=== PATIENT | male | born 1940 | race Caucasian/White ===

== ENCOUNTER 2017-10-12 12:58 | Inpatient (IN) ==
[2017-10-12] MEDS ORDERED: oxyCODONE/ACETAMINOPHEN 5-325 MG TABLET PO PRN (13:20)
[2017-10-12] MEDS ORDERED: CHOLESTYRAMINE 4 GM PACK PO PRN (13:20)
[2017-10-12] MEDS ORDERED: LUBIPROSTONE 8 MCG CAPSULE PO PRN (13:20)
[2017-10-12] MEDS ORDERED: BENZONATATE 100 MG CAPSULE PO PRN (13:20)
[2017-10-12] MEDS ORDERED: MAGNESIUM SULF RIDER 2 GM in PREMIX 1 EACH IV PRN (13:26)
[2017-10-12] MEDS ORDERED: MAGNESIUM SULF RIDER 4 GM in PREMIX 1 EACH IV PRN (13:26)
[2017-10-12] MEDS ORDERED: CLOBETASOL 0.05% CREAM 15 GM TUBE TOP SCH (13:30)
[2017-10-12] MEDS ORDERED: methylPREDNISolone SOD SUC 125 MG/2 ML VIAL IV STA (13:37)
[2017-10-12] MEDS ORDERED: DEXTROSE 50% 25 GM/50 ML VIAL IV PRN (13:47)
[2017-10-12] MEDS ORDERED: GLUCAGON 1 MG VIAL IM PRN (13:47)
[2017-10-12 14:52] LABS: Basophils # 0.1 10*3/uL (0.0-0.2); Basophils % 0.6 % (0.0-0.8); Eosinophils # 0.1 10*3/uL (0.0-0.87); Eosinophils % 1.7 % (0.00-10.9); Hematocrit 35.6 VOL% (42.0-52.0); Hemoglobin 11.9 GM/DL (14.0-18.0); Immature Granulocytes % 2.2 %; Immature Granulocytes Absolute 0.17 #; Lymphocytes # 1.5 10*3/uL (1.4-4.0); Lymphocytes % 19.7 % (21.2-54.2); Mean Corpuscular HGB Conc 33.4 GM/DL (32-36); Mean Corpuscular Hemoglobin 32 PG (27-34); Mean Corpuscular Volume 95.4 FL (87-102); Mean Platelet Volume 11.1 FL (9.6-12.0); Monocytes # 0.8 10*3/uL (0.11-0.8); Monocytes % 10.9 % (1.7-12.7); Neutrophils % 64.9 % (38.7-73.9); Platelet Count 150 T/CUMM (130-400); Red Blood Count 3.73 MC/CUMM (3.8-5.5); White Blood Count 7.7 T/CUMM (4-12)
[2017-10-12 15:13] LABS: Calcium 8.1 MG/DL (8.5-10.1); Osmolality,Calculated 282.7 MOS/KG (273-304); Potassium 4.3 MMOL/L (3.5-5.1)
[2017-10-12] MEDS ORDERED: FUROSEMIDE 40 MG/4 ML VIAL IV SCH (16:00)
[2017-10-12] MEDS: clonazePAM 0.5 MG TABLET PO SCH ×2 (17:16→20:33)
[2017-10-12] MEDS: GABAPENTIN 100 MG CAPSULE PO SCH ×2 (17:17→20:33)
[2017-10-12] MEDS: LEVOFLOXACIN 500 MG TABLET PO SCH (18:23)
[2017-10-12] MEDS: POTASSIUM CHLORIDE 20 MEQ TABLET PO SCH ×2 (18:26→20:33)
[2017-10-12] MEDS ORDERED: SODIUM CHLORIDE 0.9% 250 ML IV ONE (18:27)
[2017-10-12 18:43] LABS: Basophils % 0.6 % (0.0-0.8); Eosinophils # 0.1 10*3/uL (0.0-0.87); Eosinophils % 1.7 % (0.00-10.9); Hematocrit 35.4 VOL% (42.0-52.0); Hemoglobin 11.3 GM/DL (14.0-18.0); Immature Granulocytes % 1.9 %; Immature Granulocytes Absolute 0.14 #; Lymphocytes # 1.5 10*3/uL (1.4-4.0); Lymphocytes % 20.6 % (21.2-54.2); Mean Corpuscular HGB Conc 31.9 GM/DL (32-36); Mean Corpuscular Hemoglobin 31 PG (27-34); Mean Corpuscular Volume 97.8 FL (87-102); Mean Platelet Volume 10.9 FL (9.6-12.0); Monocytes # 0.9 10*3/uL (0.11-0.8); Monocytes % 12.7 % (1.7-12.7); Neutrophils # 4.5 10*3/uL (1.4-7.4); Neutrophils % 62.5 % (38.7-73.9); Platelet Count 142 T/CUMM (130-400); Red Blood Count 3.62 MC/CUMM (3.8-5.5); White Blood Count 7.3 T/CUMM (4-12)
[2017-10-12] MEDS ORDERED: SODIUM CHLORIDE 0.9% 1,000 ML IV SCH (19:00)
[2017-10-12 19:14] LABS: Albumin 2.6 G/DL (3.4-5.0); Bilirubin,Total 0.4 MG/DL (0.2-1.0); Calcium 8.4 MG/DL (8.5-10.1); Magnesium 1.9 MG/DL (1.8-2.4); Osmolality,Calculated 285.5 MOS/KG (273-304); Potassium 4.1 MMOL/L (3.5-5.1); Total Protein 5.4 G/DL (6.4-8.3)
[2017-10-12 19:24] LABS: ABG Base Excess 0.1 MMOL/L (-2.5-2.5); ABG HCO3 24.4 MMOL/L (20-26); ABG Oxygen Saturation 95.8 % (95-100); ABG PCO2 44.1 MM HG (35-48); ABG PH 7.371 (7.35-7.45); ABG TCO2 23.1 MMOL/L (23-27); Allen Test Positive
[2017-10-12 19:28] LABS: Lactic Acid 2.2 MMOL/L (0.4-2.0)
[2017-10-12] MEDS: INSULIN REGULAR 100 UNIT/ML SUBCUT SCH ×2 (19:37→22:08)
[2017-10-12] MEDS: SERTRALINE 50 MG TABLET PO SCH (20:32)
[2017-10-12] MEDS: MONTELUKAST 10 MG TABLET PO SCH (20:33)
[2017-10-12] MEDS: busPIRone 10 MG TABLET PO SCH (20:33)
[2017-10-12] MEDS: ENOXAPARIN 40 MG/0.4 ML SYRINGE SUBCUT SCH (20:39)
[2017-10-12] MEDS: CARVEDILOL 3.125 MG TABLET PO SCH (20:44)
[2017-10-12] MEDS: ALBUTEROL 2.5 MG/3 ML NEB RESP TX SCH (20:50)
[2017-10-12] MEDS: ARFORMOTEROL 15 MCG/2 ML NEB RESP TX SCH (20:50)
[2017-10-12] MEDS ORDERED: POTASSIUM IODIDE ORAL SOLN 1,000 MG/ML BOTTLE PO SCH (21:00)
[2017-10-12] MEDS ORDERED: NON-FORMULARY MEDICATION (Zolpidem Tartrate [Ambien] 10 MG) PO SCH (21:00)
[2017-10-12] MEDS: predniSONE 5 MG TABLET PO SCH (22:08)
[2017-10-13] MEDS: BUDESONIDE/FORMOTEROL 160-4.5 INHALER 6 GM INH SCH ×3 (01:01→21:30)
[2017-10-13 05:05] LABS: Basophils % 0.5 % (0.0-0.8); Eosinophils # 0.2 10*3/uL (0.0-0.87); Eosinophils % 2.3 % (0.00-10.9); Hematocrit 34.3 VOL% (42.0-52.0); Hemoglobin 11.2 GM/DL (14.0-18.0); Immature Granulocytes % 1.8 %; Immature Granulocytes Absolute 0.15 #; Lymphocytes # 1.4 10*3/uL (1.4-4.0); Lymphocytes % 16.4 % (21.2-54.2); Mean Corpuscular HGB Conc 32.7 GM/DL (32-36); Mean Corpuscular Hemoglobin 32 PG (27-34); Mean Corpuscular Volume 97.2 FL (87-102); Monocytes % 11.9 % (1.7-12.7); Neutrophils # 5.6 10*3/uL (1.4-7.4); Neutrophils % 67.1 % (38.7-73.9); Platelet Count 140 T/CUMM (130-400); Red Blood Count 3.53 MC/CUMM (3.8-5.5); Red Cell Distribution Width 14.8 % (9.3-17.3); White Blood Count 8.4 T/CUMM (4-12)
[2017-10-13 05:39] LABS: Calcium 7.8 MG/DL (8.5-10.1); Magnesium 1.9 MG/DL (1.8-2.4); Osmolality,Calculated 281.5 MOS/KG (273-304); Potassium 4.5 MMOL/L (3.5-5.1)
[2017-10-13] MEDS: LEVOTHYROXINE 88 MCG TABLET PO SCH (06:49)
[2017-10-13] MEDS: ALBUTEROL 2.5 MG/3 ML NEB RESP TX SCH ×3 (07:41→21:41)
[2017-10-13] MEDS: ARFORMOTEROL 15 MCG/2 ML NEB RESP TX SCH ×2 (07:41→21:41)
[2017-10-13] MEDS: MULTIVITAMIN (CENTRUM) TABLET PO SCH (08:59)
[2017-10-13] MEDS: clonazePAM 0.5 MG TABLET PO SCH ×3 (09:00→20:24)
[2017-10-13] MEDS ORDERED: MULTIVITAMIN (CENTRUM) TABLET PO SCH (09:00)
[2017-10-13] MEDS ORDERED: prednisoLONE 5 MG TABLET PO SCH (09:00)
[2017-10-13] MEDS: INSULIN REGULAR 100 UNIT/ML SUBCUT SCH ×2 (09:00→17:02)
[2017-10-13] MEDS: oxyCODONE/ACETAMINOPHEN 5-325 MG TABLET PO SCH (09:00)
[2017-10-13] MEDS: LEVOFLOXACIN 500 MG TABLET PO SCH (09:00)
[2017-10-13] MEDS ORDERED: NON-FORMULARY MEDICATION (Omeprazole [Prilosec] 40 MG) PO SCH (09:00)
[2017-10-13] MEDS: DOCUSATE SODIUM 100 MG CAPSULE PO SCH (09:01)
[2017-10-13] MEDS: PANTOPRAZOLE 40 MG TABLET PO SCH (09:01)
[2017-10-13] MEDS: CALCIUM (CITRATE) 200 MG TABLET PO SCH (09:01)
[2017-10-13] MEDS: CHOLECALCIFEROL 5,000 UNIT TABLET PO SCH (09:01)
[2017-10-13] MEDS: GABAPENTIN 100 MG CAPSULE PO SCH ×3 (09:01→20:23)
[2017-10-13] MEDS: CARVEDILOL 3.125 MG TABLET PO SCH ×2 (09:01→20:24)
[2017-10-13] MEDS: busPIRone 10 MG TABLET PO SCH ×2 (09:01→20:24)
[2017-10-13] MEDS: SPIRONOLACTONE 25 MG TABLET PO SCH (09:01)
[2017-10-13] MEDS: POTASSIUM CHLORIDE 20 MEQ TABLET PO SCH ×2 (09:02→20:23)
[2017-10-13] MEDS: OMEGA 3 ACID ETHYL ESTERS 1 GM CAPSULE PO SCH (09:02)
[2017-10-13] MEDS: oxyCODONE/ACETAMINOPHEN 5-325 MG TABLET PO PRN ×2 (15:22→22:34)
[2017-10-13] MEDS: MONTELUKAST 10 MG TABLET PO SCH (20:23)
[2017-10-13] MEDS: SERTRALINE 50 MG TABLET PO SCH (20:24)
[2017-10-13] MEDS: ENOXAPARIN 40 MG/0.4 ML SYRINGE SUBCUT SCH (20:31)
[2017-10-13] MEDS: ZALEPLON 5 MG CAPSULE PO PRN (22:34)
[2017-10-14] MEDS: oxyCODONE/ACETAMINOPHEN 5-325 MG TABLET PO PRN (03:16)
[2017-10-14] MEDS: CYCLOBENZAPRINE 10 MG TABLET PO PRN (03:19)
[2017-10-14] MEDS: LEVOTHYROXINE 88 MCG TABLET PO SCH (06:24)
[2017-10-14] MEDS: ALBUTEROL 2.5 MG/3 ML NEB RESP TX SCH ×3 (07:49→21:11)
[2017-10-14] MEDS: ARFORMOTEROL 15 MCG/2 ML NEB RESP TX SCH ×2 (07:49→21:11)
[2017-10-14] MEDS: ROSUVASTATIN 10 MG TABLET PO SCH (10:16)
[2017-10-14] MEDS: PANTOPRAZOLE 40 MG TABLET PO SCH (10:17)
[2017-10-14] MEDS: oxyCODONE/ACETAMINOPHEN 5-325 MG TABLET PO SCH (10:17)
[2017-10-14] MEDS: SPIRONOLACTONE 25 MG TABLET PO SCH (10:17)
[2017-10-14] MEDS: DOCUSATE SODIUM 100 MG CAPSULE PO SCH (10:17)
[2017-10-14] MEDS: predniSONE 5 MG TABLET PO SCH (10:18)
[2017-10-14] MEDS: MULTIVITAMIN (CENTRUM) TABLET PO SCH (10:18)
[2017-10-14] MEDS: POTASSIUM CHLORIDE 20 MEQ TABLET PO SCH ×2 (10:18→21:44)
[2017-10-14] MEDS: busPIRone 10 MG TABLET PO SCH ×2 (10:18→21:44)
[2017-10-14] MEDS: CARVEDILOL 3.125 MG TABLET PO SCH ×2 (10:18→21:44)
[2017-10-14] MEDS: LEVOFLOXACIN 500 MG TABLET PO SCH (10:18)
[2017-10-14] MEDS: GABAPENTIN 100 MG CAPSULE PO SCH ×3 (10:19→21:44)
[2017-10-14] MEDS: OMEGA 3 ACID ETHYL ESTERS 1 GM CAPSULE PO SCH (10:19)
[2017-10-14] MEDS: clonazePAM 0.5 MG TABLET PO SCH ×3 (10:19→21:43)
[2017-10-14] MEDS: BUDESONIDE/FORMOTEROL 160-4.5 INHALER 6 GM INH SCH ×2 (10:19→21:53)
[2017-10-14] MEDS: CALCIUM (CITRATE) 200 MG TABLET PO SCH (14:18)
[2017-10-14] MEDS: CHOLECALCIFEROL 5,000 UNIT TABLET PO SCH (18:26)
[2017-10-14] MEDS: ZALEPLON 5 MG CAPSULE PO PRN (21:43)
[2017-10-14] MEDS: SERTRALINE 50 MG TABLET PO SCH (21:43)
[2017-10-14] MEDS: MONTELUKAST 10 MG TABLET PO SCH (21:43)
[2017-10-14] MEDS: ENOXAPARIN 40 MG/0.4 ML SYRINGE SUBCUT SCH (21:48)
[2017-10-15] MEDS: CYCLOBENZAPRINE 10 MG TABLET PO PRN (01:14)
[2017-10-15 04:56] LABS: Basophils % 0.5 % (0.0-0.8); Eosinophils # 0.1 10*3/uL (0.0-0.87); Eosinophils % 1.5 % (0.00-10.9); Hematocrit 34.4 VOL% (42.0-52.0); Hemoglobin 10.6 GM/DL (14.0-18.0); Immature Granulocytes % 1.5 %; Immature Granulocytes Absolute 0.09 #; Lymphocytes # 1.1 10*3/uL (1.4-4.0); Lymphocytes % 19.4 % (21.2-54.2); Mean Corpuscular HGB Conc 30.8 GM/DL (32-36); Mean Corpuscular Hemoglobin 31 PG (27-34); Mean Corpuscular Volume 101.2 FL (87-102); Mean Platelet Volume 11.1 FL (9.6-12.0); Monocytes # 0.8 10*3/uL (0.11-0.8); Monocytes % 13.4 % (1.7-12.7); Neutrophils # 3.8 10*3/uL (1.4-7.4); Neutrophils % 63.7 % (38.7-73.9); Platelet Count 154 T/CUMM (130-400); Red Cell Distribution Width 14.6 % (9.3-17.3); White Blood Count 5.9 T/CUMM (4-12)
[2017-10-15 05:27] LABS: Calcium 8.6 MG/DL (8.5-10.1); Osmolality,Calculated 279.7 MOS/KG (273-304); Potassium 5.7 MMOL/L (3.5-5.1)
[2017-10-15] MEDS: LEVOTHYROXINE 88 MCG TABLET PO SCH (06:01)
[2017-10-15] MEDS: ALBUTEROL 2.5 MG/3 ML NEB RESP TX SCH ×3 (07:15→19:45)
[2017-10-15] MEDS: ARFORMOTEROL 15 MCG/2 ML NEB RESP TX SCH ×2 (07:20→19:46)
[2017-10-15] MEDS: GABAPENTIN 100 MG CAPSULE PO SCH ×3 (09:00→21:05)
[2017-10-15] MEDS: CARVEDILOL 3.125 MG TABLET PO SCH (09:11)
[2017-10-15] MEDS: SPIRONOLACTONE 25 MG TABLET PO SCH (09:11)
[2017-10-15] MEDS: clonazePAM 0.5 MG TABLET PO SCH ×3 (09:11→21:06)
[2017-10-15] MEDS: busPIRone 10 MG TABLET PO SCH ×2 (09:11→21:06)
[2017-10-15] MEDS: PANTOPRAZOLE 40 MG TABLET PO SCH (09:12)
[2017-10-15] MEDS: MULTIVITAMIN (CENTRUM) TABLET PO SCH (09:14)
[2017-10-15] MEDS: LEVOFLOXACIN 500 MG TABLET PO SCH (09:14)
[2017-10-15] MEDS: DOCUSATE SODIUM 100 MG CAPSULE PO SCH (09:14)
[2017-10-15] MEDS: CALCIUM (CITRATE) 200 MG TABLET PO SCH (09:14)
[2017-10-15] MEDS: POTASSIUM CHLORIDE 20 MEQ TABLET PO SCH ×2 (09:15→21:06)
[2017-10-15] MEDS: OMEGA 3 ACID ETHYL ESTERS 1 GM CAPSULE PO SCH (09:15)
[2017-10-15] MEDS: BUDESONIDE/FORMOTEROL 160-4.5 INHALER 6 GM INH SCH ×2 (09:15→21:06)
[2017-10-15] MEDS ORDERED: ONDANSETRON 4 MG/2 ML VIAL IV PRN (13:48)
[2017-10-15] MEDS: CHOLECALCIFEROL 5,000 UNIT TABLET PO SCH (14:27)
[2017-10-15] MEDS: ASPIRIN EC 81 MG TABLET PO SCH (14:28)
[2017-10-15] MEDS: ENOXAPARIN 40 MG/0.4 ML SYRINGE SUBCUT SCH (21:05)
[2017-10-15] MEDS: MONTELUKAST 10 MG TABLET PO SCH (21:05)
[2017-10-15] MEDS: SERTRALINE 50 MG TABLET PO SCH (21:06)
[2017-10-15] MEDS: METOPROLOL SUCCINATE XL 25 MG TABLET PO SCH (21:06)
[2017-10-16] MEDS: CYCLOBENZAPRINE 10 MG TABLET PO PRN (01:18)
[2017-10-16 05:02] LABS: Basophils % 0.5 % (0.0-0.8); Eosinophils # 0.2 10*3/uL (0.0-0.87); Hematocrit 35.4 VOL% (42.0-52.0); Hemoglobin 10.8 GM/DL (14.0-18.0); Immature Granulocytes Absolute 0.08 #; Lymphocytes # 1.2 10*3/uL (1.4-4.0); Lymphocytes % 15.5 % (21.2-54.2); Mean Corpuscular HGB Conc 30.5 GM/DL (32-36); Mean Corpuscular Hemoglobin 31 PG (27-34); Mean Corpuscular Volume 102.3 FL (87-102); Mean Platelet Volume 11.3 FL (9.6-12.0); Monocytes # 0.8 10*3/uL (0.11-0.8); Monocytes % 10.2 % (1.7-12.7); Neutrophils # 5.4 10*3/uL (1.4-7.4); Neutrophils % 70.8 % (38.7-73.9); Platelet Count 167 T/CUMM (130-400); Red Blood Count 3.46 MC/CUMM (3.8-5.5); Red Cell Distribution Width 14.6 % (9.3-17.3); White Blood Count 7.7 T/CUMM (4-12)
[2017-10-16 05:37] LABS: Calcium 8.5 MG/DL (8.5-10.1); Magnesium 1.8 MG/DL (1.8-2.4); Osmolality,Calculated 274.8 MOS/KG (273-304); Potassium 5.9 MMOL/L (3.5-5.1)
[2017-10-16] MEDS: LEVOTHYROXINE 88 MCG TABLET PO SCH (06:30)
[2017-10-16] MEDS: ALBUTEROL 2.5 MG/3 ML NEB RESP TX SCH ×3 (07:51→20:26)
[2017-10-16] MEDS: ARFORMOTEROL 15 MCG/2 ML NEB RESP TX SCH ×2 (07:51→20:26)
[2017-10-16] MEDS: clonazePAM 0.5 MG TABLET PO SCH ×3 (08:05→20:26)
[2017-10-16] MEDS: CHOLECALCIFEROL 5,000 UNIT TABLET PO SCH (08:05)
[2017-10-16] MEDS: ROSUVASTATIN 10 MG TABLET PO SCH (08:05)
[2017-10-16] MEDS: ASPIRIN EC 81 MG TABLET PO SCH (08:07)
[2017-10-16] MEDS: CALCIUM (CITRATE) 200 MG TABLET PO SCH (08:07)
[2017-10-16] MEDS: predniSONE 5 MG TABLET PO SCH (08:07)
[2017-10-16] MEDS: LEVOFLOXACIN 500 MG TABLET PO SCH (08:08)
[2017-10-16] MEDS: POTASSIUM CHLORIDE 20 MEQ TABLET PO SCH ×2 (08:08→08:12)
[2017-10-16] MEDS: OMEGA 3 ACID ETHYL ESTERS 1 GM CAPSULE PO SCH (08:08)
[2017-10-16] MEDS: PANTOPRAZOLE 40 MG TABLET PO SCH (08:08)
[2017-10-16] MEDS: GABAPENTIN 100 MG CAPSULE PO SCH ×3 (08:08→20:17)
[2017-10-16] MEDS: MULTIVITAMIN (CENTRUM) TABLET PO SCH (08:08)
[2017-10-16] MEDS: SPIRONOLACTONE 25 MG TABLET PO SCH (08:08)
[2017-10-16] MEDS: DOCUSATE SODIUM 100 MG CAPSULE PO SCH (08:08)
[2017-10-16] MEDS: METOPROLOL SUCCINATE XL 25 MG TABLET PO SCH ×2 (08:08→20:17)
[2017-10-16] MEDS: busPIRone 10 MG TABLET PO SCH ×2 (08:09→20:26)
[2017-10-16] MEDS: BUDESONIDE/FORMOTEROL 160-4.5 INHALER 6 GM INH SCH ×2 (10:21→20:17)
[2017-10-16] MEDS: ENOXAPARIN 40 MG/0.4 ML SYRINGE SUBCUT SCH (20:14)
[2017-10-16] MEDS: MONTELUKAST 10 MG TABLET PO SCH (20:17)
[2017-10-16] MEDS: SERTRALINE 50 MG TABLET PO SCH (20:26)
[2017-10-17] MEDS: CYCLOBENZAPRINE 10 MG TABLET PO PRN (00:21)
[2017-10-17 05:39] LABS: Basophils % 0.5 % (0.0-0.8); Eosinophils # 0.1 10*3/uL (0.0-0.87); Eosinophils % 2.1 % (0.00-10.9); Hematocrit 33.9 VOL% (42.0-52.0); Hemoglobin 10.4 GM/DL (14.0-18.0); Immature Granulocytes % 1.4 %; Immature Granulocytes Absolute 0.08 #; Lymphocytes # 1.3 10*3/uL (1.4-4.0); Lymphocytes % 22.4 % (21.2-54.2); Mean Corpuscular HGB Conc 30.7 GM/DL (32-36); Mean Corpuscular Hemoglobin 31 PG (27-34); Mean Corpuscular Volume 101.8 FL (87-102); Mean Platelet Volume 11.2 FL (9.6-12.0); Monocytes # 0.7 10*3/uL (0.11-0.8); Neutrophils # 3.5 10*3/uL (1.4-7.4); Neutrophils % 61.6 % (38.7-73.9); Platelet Count 163 T/CUMM (130-400); Red Blood Count 3.33 MC/CUMM (3.8-5.5); Red Cell Distribution Width 14.6 % (9.3-17.3); White Blood Count 5.8 T/CUMM (4-12)
[2017-10-17] MEDS: LEVOTHYROXINE 88 MCG TABLET PO SCH (05:56)
[2017-10-17 06:09] LABS: Calcium 8.6 MG/DL (8.5-10.1); Magnesium 1.9 MG/DL (1.8-2.4); Osmolality,Calculated 282.4 MOS/KG (273-304); Potassium 4.9 MMOL/L (3.5-5.1)
[2017-10-17] MEDS: ARFORMOTEROL 15 MCG/2 ML NEB RESP TX SCH (07:48)
[2017-10-17] MEDS: ALBUTEROL 2.5 MG/3 ML NEB RESP TX SCH ×2 (07:48→13:07)
[2017-10-17] MEDS: PANTOPRAZOLE 40 MG TABLET PO SCH (08:16)
[2017-10-17] MEDS: DOCUSATE SODIUM 100 MG CAPSULE PO SCH (08:16)
[2017-10-17] MEDS: METOPROLOL SUCCINATE XL 25 MG TABLET PO SCH (08:16)
[2017-10-17] MEDS: GABAPENTIN 100 MG CAPSULE PO SCH ×2 (08:16→16:21)
[2017-10-17] MEDS: CALCIUM (CITRATE) 200 MG TABLET PO SCH (08:16)
[2017-10-17] MEDS: clonazePAM 0.5 MG TABLET PO SCH ×2 (08:17→16:22)
[2017-10-17] MEDS: SPIRONOLACTONE 25 MG TABLET PO SCH (08:17)
[2017-10-17] MEDS: MULTIVITAMIN (CENTRUM) TABLET PO SCH (08:17)
[2017-10-17] MEDS: ASPIRIN EC 81 MG TABLET PO SCH (08:18)
[2017-10-17] MEDS: OMEGA 3 ACID ETHYL ESTERS 1 GM CAPSULE PO SCH (08:18)
[2017-10-17] MEDS: CHOLECALCIFEROL 5,000 UNIT TABLET PO SCH (08:18)
[2017-10-17] MEDS: LEVOFLOXACIN 500 MG TABLET PO SCH (08:18)
[2017-10-17] MEDS: busPIRone 10 MG TABLET PO SCH (08:18)
[2017-10-17] MEDS: BUDESONIDE/FORMOTEROL 160-4.5 INHALER 6 GM INH SCH (08:19)
[2017-10-17] MEDS ORDERED: predniSONE 5 MG TABLET PO SCH (09:00)
[2017-10-17] MEDS ORDERED: SODIUM CHLORIDE 0.45% 1,000 ML IV SCH (12:00)
[2017-10-17 16:10] VITALS: BP 132/99
[2017-10-17] MEDS ORDERED: CARVEDILOL 3.125 MG TABLET PO SCH (21:00)
== END 2017-10-17 17:33 | disposition home health service (06) | DRG 291 ==
LOC: EDBD → EDUNIT# → N.ED 12:58 → SUATTDRO 13:26 → N.EDINP 13:26 → N.TELEN 16:10 → N.CC 18:40
PROVIDERS: ADMIT Internal Medicine Cardiovascular Disease; ATTEND Internal Medicine Cardiovascular Disease

== ENCOUNTER 2018-01-29 12:24 | Inpatient (IN) ==
[~2018-01-29 12:24] MED LIST: HEPARIN/NACL 0.9% 2 UNITS/ML 0 ML IV ONE; MIDAZOLAM 2 MG/2 ML VIAL ONE; fentaNYL 100 MCG/2 ML VIAL ONE
[2018-01-29] MEDS ORDERED: ENOXAPARIN 100 MG/ML SYRINGE SUBCUT STA (12:50)
[2018-01-29] MEDS ORDERED: ALBUTEROL/IPRATROPIUM 3 ML NEB RESP TX STA (12:50)
[2018-01-29] MEDS ORDERED: ASPIRIN 325 MG TABLET PO STA (12:50)
[2018-01-29 13:53] LABS: Basophils # 0.1 10*3/uL (0.0-0.2); Basophils % 0.3 % (0.0-0.8); Hematocrit 36.6 VOL% (42.0-52.0); Hemoglobin 11.5 GM/DL (14.0-18.0); Immature Granulocytes Absolute 0.15 #; Lymphocytes # 1.4 10*3/uL (1.4-4.0); Lymphocytes % 9.3 % (21.2-54.2); Mean Corpuscular HGB Conc 31.4 GM/DL (32-36); Mean Corpuscular Hemoglobin 28 PG (27-34); Mean Corpuscular Volume 87.8 FL (87-102); Mean Platelet Volume 11.2 FL (9.6-12.0); Monocytes # 2.5 10*3/uL (0.11-0.8); Neutrophils # 11.2 10*3/uL (1.4-7.4); Neutrophils % 73.4 % (38.7-73.9); Platelet Count 139 T/CUMM (130-400); Red Blood Count 4.17 MC/CUMM (3.8-5.5); White Blood Count 15.3 T/CUMM (4-12)
[2018-01-29 14:13] LABS: Albumin 3.3 G/DL (3.4-5.0); Bilirubin,Total 1.2 MG/DL (0.2-1.0); Calcium 8.6 MG/DL (8.5-10.1); Potassium 4.7 MMOL/L (3.5-5.1); Total Protein 6.4 G/DL (6.4-8.3)
[2018-01-29 14:18] LABS: Anisocytosis 1+; Band Neutrophils 23 % (0-10); Lymphocytes 11 % (20-55); Platelet Estimate Adequate; Segmented Neutrophils 53 % (50-85); Total Cells Counted 100
[2018-01-29] MEDS ORDERED: ONDANSETRON 4 MG/2 ML VIAL IV PRN (15:49)
[2018-01-29] MEDS ORDERED: ACETAMINOPHEN 325 MG TABLET PO PRN (15:49)
[2018-01-29] MEDS ORDERED: guaiFENesin/DM ER 600-30 MG TABLET PO PRN (15:49)
[2018-01-29] MEDS ORDERED: MAGNESIUM SULF RIDER 2 GM in PREMIX 1 EACH IV ONE (15:53)
[2018-01-29] MEDS ORDERED: SODIUM CHLORIDE 0.9% 1,000 ML IV SCH (16:00)
[2018-01-29] MEDS ORDERED: SODIUM CHLORIDE 0.9% 250 ML IV ONE (16:01)
[2018-01-29] MEDS ORDERED: CHOLESTYRAMINE 4 GM PACK PO PRN (16:03)
[2018-01-29] MEDS ORDERED: NITROGLYCERIN SL 0.4 MG TABLET SL PRN (16:03)
[2018-01-29] MEDS ORDERED: BUMETANIDE 1 MG TABLET PO PRN (16:03)
[2018-01-29] MEDS ORDERED: SPIRONOLACTONE 25 MG TABLET PO PRN (16:03)
[2018-01-29] MEDS ORDERED: BENZONATATE 100 MG CAPSULE PO PRN (16:03)
[2018-01-29] MEDS ORDERED: POTASSIUM IODIDE ORAL SOLN 1,000 MG/ML BOTTLE PO PRN (16:03)
[2018-01-29] MEDS ORDERED: ALBUTEROL 2.5 MG/3 ML NEB RESP TX PRN (16:03)
[2018-01-29 17:39] LABS: Lactic Acid 2.6 MMOL/L (0.4-2.0)
[2018-01-29] MEDS: LEVOFLOXACIN 750 MG TABLET PO SCH (18:01)
[2018-01-29] MEDS: BUDESONIDE 0.5 MG/2 ML NEB RESP TX SCH (19:24)
[2018-01-29] MEDS: ARFORMOTEROL 15 MCG/2 ML NEB RESP TX SCH (19:24)
[2018-01-29] MEDS: GABAPENTIN 100 MG CAPSULE PO SCH (21:25)
[2018-01-29] MEDS: DOCUSATE SODIUM 100 MG CAPSULE PO SCH (21:25)
[2018-01-29] MEDS: CARVEDILOL 3.125 MG TABLET PO SCH (21:25)
[2018-01-29] MEDS: ISOSORBIDE MONONITRATE 20 MG TABLET PO SCH (21:25)
[2018-01-29] MEDS: ZALEPLON 5 MG CAPSULE PO SCH (21:25)
[2018-01-29] MEDS: MONTELUKAST 10 MG TABLET PO SCH (21:25)
[2018-01-29] MEDS: ALFUZOSIN 10 MG TABLET PO SCH (21:25)
[2018-01-29] MEDS: SERTRALINE 100 MG TABLET PO SCH (21:25)
[2018-01-29] MEDS: OMEGA 3 ACID ETHYL ESTERS 1 GM CAPSULE PO SCH (21:26)
[2018-01-29] MEDS: busPIRone 10 MG TABLET PO SCH (21:30)
[2018-01-29] MEDS: CHOLECALCIFEROL 5,000 UNIT TABLET PO SCH (22:44)
[2018-01-29 23:27] LABS: Lactic Acid 2.4 MMOL/L (0.4-2.0)
[2018-01-30] MEDS: CYCLOBENZAPRINE 10 MG TABLET PO PRN ×2 (01:39→15:35)
[2018-01-30 03:18] LABS: Basophils % 0.2 % (0.0-0.8); Eosinophils % 0.2 % (0.00-10.9); Hematocrit 33.9 VOL% (42.0-52.0); Hemoglobin 10.8 GM/DL (14.0-18.0); Immature Granulocytes % 0.8 %; Immature Granulocytes Absolute 0.11 #; Lymphocytes # 1.4 10*3/uL (1.4-4.0); Lymphocytes % 10.8 % (21.2-54.2); Mean Corpuscular HGB Conc 31.9 GM/DL (32-36); Mean Corpuscular Hemoglobin 28 PG (27-34); Mean Corpuscular Volume 87.6 FL (87-102); Mean Platelet Volume 11.5 FL (9.6-12.0); Monocytes % 14.9 % (1.7-12.7); Neutrophils # 9.6 10*3/uL (1.4-7.4); Neutrophils % 73.1 % (38.7-73.9); Platelet Count 135 T/CUMM (130-400); Red Blood Count 3.87 MC/CUMM (3.8-5.5); Red Cell Distribution Width 15.1 % (9.3-17.3); White Blood Count 13.2 T/CUMM (4-12)
[2018-01-30 03:34] LABS: Calcium 8.4 MG/DL (8.5-10.1)
[2018-01-30] MEDS: methylPREDNISolone SOD SUC 40 MG/1 ML VIAL IV SCH ×3 (04:45→21:50)
[2018-01-30] MEDS: LEVOTHYROXINE 88 MCG TABLET PO SCH (06:11)
[2018-01-30] MEDS: ARFORMOTEROL 15 MCG/2 ML NEB RESP TX SCH (07:19)
[2018-01-30] MEDS: ALBUTEROL/IPRATROPIUM 3 ML NEB RESP TX SCH ×3 (07:20→20:12)
[2018-01-30] MEDS: BUDESONIDE 0.5 MG/2 ML NEB RESP TX SCH ×2 (07:20→20:12)
[2018-01-30] MEDS: ASPIRIN 325 MG TABLET PO SCH (08:25)
[2018-01-30] MEDS: CALCIUM (CITRATE) 200 MG TABLET PO SCH (08:25)
[2018-01-30] MEDS: busPIRone 10 MG TABLET PO SCH ×2 (08:25→21:49)
[2018-01-30] MEDS: GABAPENTIN 100 MG CAPSULE PO SCH ×3 (08:25→21:49)
[2018-01-30] MEDS: LUBIPROSTONE 8 MCG CAPSULE PO SCH (08:25)
[2018-01-30] MEDS: PANTOPRAZOLE 40 MG TABLET PO SCH (08:25)
[2018-01-30] MEDS: ENOXAPARIN 40 MG/0.4 ML SYRINGE SUBCUT SCH (08:25)
[2018-01-30] MEDS: guaiFENesin/DM ER 600-30 MG TABLET PO SCH ×2 (08:25→21:50)
[2018-01-30] MEDS: CARVEDILOL 3.125 MG TABLET PO SCH ×2 (08:25→21:50)
[2018-01-30] MEDS: MULTIVITAMIN (CENTRUM) TABLET PO SCH (08:25)
[2018-01-30] MEDS: ISOSORBIDE MONONITRATE 20 MG TABLET PO SCH ×2 (08:25→21:50)
[2018-01-30] MEDS ORDERED: PANTOPRAZOLE 40 MG TABLET PO SCH (09:00)
[2018-01-30] MEDS ORDERED: INSULIN REGULAR DRIP 100 ML IV PRN (12:15)
[2018-01-30] MEDS: LEVOFLOXACIN 750 MG TABLET PO SCH (15:34)
[2018-01-30] MEDS: hydrALAZINE 10 MG TABLET PO SCH ×2 (16:59→21:51)
[2018-01-30] MEDS: OMEGA 3 ACID ETHYL ESTERS 1 GM CAPSULE PO SCH (21:50)
[2018-01-30] MEDS: DOCUSATE SODIUM 100 MG CAPSULE PO SCH (21:50)
[2018-01-30] MEDS: ALFUZOSIN 10 MG TABLET PO SCH (21:50)
[2018-01-30] MEDS: CHOLECALCIFEROL 5,000 UNIT TABLET PO SCH (21:50)
[2018-01-30] MEDS: MONTELUKAST 10 MG TABLET PO SCH (21:50)
[2018-01-30] MEDS: ZALEPLON 5 MG CAPSULE PO SCH (21:50)
[2018-01-30] MEDS: SERTRALINE 100 MG TABLET PO SCH (21:50)
[2018-01-31] MEDS: ALBUTEROL/IPRATROPIUM 3 ML NEB RESP TX SCH ×2 (00:23→07:20)
[2018-01-31] MEDS: methylPREDNISolone SOD SUC 40 MG/1 ML VIAL IV SCH (05:47)
[2018-01-31] MEDS: BUDESONIDE 0.5 MG/2 ML NEB RESP TX SCH (07:20)
[2018-01-31] MEDS: LEVOTHYROXINE 88 MCG TABLET PO SCH (07:52)
[2018-01-31 08:18] VITALS: BP 125/76
[2018-01-31] MEDS ORDERED: predniSONE 5 MG TABLET PO SCH (09:00)
[2018-01-31] MEDS ORDERED: ROSUVASTATIN 10 MG TABLET PO SCH (09:00)
[2018-01-31] MEDS: ISOSORBIDE MONONITRATE 20 MG TABLET PO SCH (09:07)
[2018-01-31] MEDS: ASPIRIN 325 MG TABLET PO SCH (09:08)
[2018-01-31] MEDS: hydrALAZINE 10 MG TABLET PO SCH (09:08)
[2018-01-31] MEDS: guaiFENesin/DM ER 600-30 MG TABLET PO SCH (09:08)
[2018-01-31] MEDS: PANTOPRAZOLE 40 MG TABLET PO SCH (09:08)
[2018-01-31] MEDS: LUBIPROSTONE 8 MCG CAPSULE PO SCH (09:08)
[2018-01-31] MEDS: CARVEDILOL 3.125 MG TABLET PO SCH (09:08)
[2018-01-31] MEDS: busPIRone 10 MG TABLET PO SCH (09:09)
[2018-01-31] MEDS: GABAPENTIN 100 MG CAPSULE PO SCH (09:09)
[2018-01-31] MEDS: MULTIVITAMIN (CENTRUM) TABLET PO SCH (09:09)
[2018-01-31] MEDS: ENOXAPARIN 40 MG/0.4 ML SYRINGE SUBCUT SCH (09:09)
[2018-01-31] MEDS: CALCIUM (CITRATE) 200 MG TABLET PO SCH (09:14)
[2018-02-11] MEDS ORDERED: CYANOCOBALAMIN 1000 MCG/1 ML VIAL IM SCH (09:00)
== END 2018-01-31 11:36 | disposition home health service (06) | DRG 313 ==
LOC: EDUNIT# → EDBD → N.ED 12:24 → N.EDINP 12:24 → N.TELEN 17:37
PROVIDERS: ADMIT Family Medicine; ATTEND Family Medicine